=== PATIENT | female | born 1995 | race Caucasian/White ===

== ENCOUNTER 2021-06-04 06:18 | Day surgery (SDC) | payer MEDICAID, SELFPAY ==
[~2021-06-04] VITALS: Ht 149.9 cm; Wt 74.8 kg
[2021-06-04 07:05] LABS: HCG,QUAL RESULT NEGATIVE (NEGATIVE)
[2021-06-04] MEDS ORDERED: SIMETHICONE 40 MG/0.6 ML ML ONE (07:10)
[2021-06-04] MEDS ORDERED: BENZOCAINE 20% 0.5mL UD SPRAY MM ONE (07:10)
[2021-06-04] MEDS ORDERED: MIDAZOLAM HCL 5 MG/5 ML VIAL ONE (07:10)
[2021-06-04] MEDS ORDERED: MEPERIDINE 100 MG INJ. 100 MG/ML VIAL ONE (07:10)
[2021-06-04] MEDS ORDERED: DIPHENHYDRAMINE INJ 50 MG/ML VIAL ONE (08:32)
[2021-06-04 11:02] VITALS: BP_SYST 143
== END 2021-06-04 09:20 | disposition home or self-care (01) ==
LOC: SDS 06:18
PROVIDERS: ATTEND Internal Medicine
DX: R10.9 Unspecified abdominal pain (principal); R11.10 Vomiting, unspecified; K29.70 Gastritis, unspecified, without bleeding; Z20.822 Contact with and (suspected) exposure to COVID-19; Z79.899 Other long term (current) drug therapy
CPT/HCPCS: 36415; 43239; 84703; 87426; 88305; 88312; 88313; 99152; G0378; J1200; J2175; J2250; U0003